=== PATIENT | female | born 2000 | race Caucasian/White ===

== ENCOUNTER → 2021-01-08 | Outpatient (CLI) | payer OTHER ==
[~2021-01-08] MED LIST: PROHANCE 279.3MG/ML 15ML VIAL As Ordered ONE
--- NOTE | 2021-01-08 13:09 | REP ---
INDICATION: RT BREAST LUMP W/ SOLID MASS NOTED. COMPARISON: Right breast ultrasound 11/21/2020 and 12/25/2020, mammogram right breast 12/25/2020. TECHNIQUE: Three Pamela MRI imaging was performed with a dedicated breast coil. Axial, coronal, and sagittal T1 and T2 weighted scans were obtained with and without fat saturation in the usual fashion. The study includes dynamically acquired post gadolinium-enhanced imaging with image subtraction. Maximum intensity projection and multi planar reformation imaging is included as well. This study is interpreted with the aid of ZextitD, an FDA approved computer aided detection (CAD) software program, on a dedicated breast MRI workstation. The gadolinium enhancement dose is 15 mL of intravenous ProHance. FINDINGS: There is moderate fibroglandular tissue bilaterally. No significant cystic change is seen in either breast. There is mild background parenchymal enhancement. There is no evidence of axillary adenopathy bilaterally. In the outer aspect of the right breast, approximately 8 cm from the nipple, there is a lobulated nodule. It is heterogeneous and mildly hyperintense on T2 weighted images. It measures approximately 1.4 x 1.0 cm. There is diffuse enhancement of the nodule, predominantly type 2 and type 3 enhancement. No other enhancing nodule or morphologic abnormality is seen in either breast. IMPRESSION: BI-RADS category 4, suspicious MRI. In the outer right breast approximately 8 cm from the nipple there is a 1.4 cm lobulated nodule which demonstrates type 2 and type 3 enhancement. This appears to correspond to the nodule identified by ultrasound 11/21/2020. Recommend ultrasound-guided biopsy. <Electronically signed by Jose Alejandro Matamoros > 01/08/21 [id number]
== END ==
LOC: M RAD 10:27
PROVIDERS: ATTEND Nurse Practitioner Primary Care
DX: N63.11 Unspecified lump in the right breast, upper outer quadrant (principal)

== ENCOUNTER → 2021-01-15 | Outpatient (CLI) | payer OTHER ==
[~2021-01-15] MED LIST changes: +DIAZ5TAB PO; -PROHANCE 279.3MG/ML 15ML VIAL As Ordered ONE
[2021-01-15 16:08] VITALS: BP 126/82
--- NOTE | 2021-01-15 22:49 | ROOPDOC ---
[facility] Report Of Operation Report of Operation DATE OF PROCEDURE: 01/15/21 DIAGNOSIS: right breast suspicious lesion PROCEDURE: ultrasound guided biopsy of the right breast suspicious lesions at 12:00 and 10:00 with clip placement, attempted ultrasound guided aspiration of the right breast 12:00 lesion SURGEON: Karoline Clay BLOOD LOSS: minimal COMPLICATIONS: none Lidocaine 1% LOT [id number] Expiration 07/2024 Sodium Bicarbonate 8.4% LOT [id number] Expiration 07/2021 BIOPSY OF RIGHT BREAST 12:00 LESION Hydromark clip LOT [id number] Expiration 09/2023 SHAPE: 3 Bx device: BARD [id number] x10 cm LOT [id number] Expiration 09/2023 BIOPSY OF RIGHT BREAST 10:00 LESION Hydromark clip LOT [id number] Expiration 09/2023 SHAPE: 4 Bx device: BARD [id number] x10 cm LOT [id number] Expiration 09/2023 Informed consent was obtained. The most common risk and possible complications including bleeding, hematoma, bruising, infection, injury to surrounding structures were explained to the patient and the patient expressed understanding. Patient was placed on the bed in the supine position. Appropriate time out was done stating patients name, date of , and the procedure to be performed. Patient confirmed location of the right breast mass at 10:00 7 CFN. This was marked on the skin. The right breast was prepped and draped in the usual fashion. The ultrasound was used to confirm the location of the lesions in the right breast at 10:00 7CFN and at 12:00 3CFN. Procedure was started with evaluation of 12:00 lesion. Plain Lidocaine 1% and 8.4% sodium bicarbonate 10:1 mix was used to anesthetize the skin, the biopsy site and tissues along the anticipated biopsy tract. An attempt was done to aspirate the 12:00 lesion with the 18 G needle. No fluid was returned and the lesion persisted. Decision was made to proceed with the biopsy of 12:00 lesion. Small skin incision was made with blade number 11. BARD Marquee 14G cannula with introducer ([id number]) was inserted through the incision and advanced under the ultrasound guidance to position immediately adjacent to the lesion. Next, the introducer was removed and BARD Marquee 14G biopsy device was places in the cannula. Pre-biopsy imaging, and post-biopsy imaging were captured. Five good core biopsies were taken at various levels of the lesion. Specimen was placed in formaldehyde, labeled with appropriate biopsy site and patients name, and sent to pathology for evaluation. Next, the biopsy device was withdrawn and a clip introducer was inserted into the biopsy site via the cannula. SHAPE 3 Hydromark clip was deployed under sonographic guidance. Post-clip placement image was captured. Manual pressure over the biopsy cavity and tract was held after the clip introducer was withdrawn. No bleeding was noted upon removal of the pressure. Next, we proceeded with the biopsy of the 10:00 lesion. Plain Lidocaine 1% and 8.4% sodium bicarbonate 10:1 mix was used to anesthetize the skin, the biopsy site and tissues along the anticipated biopsy tract. Small skin incision was made with blade number 11. BARD Marquee 14G cannula with introducer ([id number]) was inserted through the incision and advanced under the ultrasound guidance to position immediately adjacent to the lesion. Next, the introducer was removed and BARD Marquee 14G biopsy device was places in the cannula. Pre-biopsy imaging, and post-biopsy imaging were captured. Five good core biopsies were taken at various levels of the lesion. Specimen was placed in formaldehyde, labeled with appropriate biopsy site and patients name, and sent to pathology for evaluation. Next, the biopsy device was withdrawn and a clip introducer was inserted into the biopsy site via the cannula. SHAPE 4 Hydromark clip was deployed under sonographic guidance. Post-clip placement image was captured. Manual pressure over the biopsy cavity and tract was held after the clip introducer was withdrawn. No bleeding was noted upon removal of the pressure. Post-biopsy mammogram of the right breast was obtained and showed clip in expe cted position. Postprocedural dressing was placed. Patient tolerated procedure well. Discharge instructions were discussed with the patient and the patient expressed understanding. KAROLINE CLAY DO Jan 15, 2021 22:49
== END ==
LOC: M WHCPRO 09:29
PROVIDERS: ATTEND Surgery
DX: N60.21 Fibroadenosis of right breast (principal)

== ENCOUNTER 2021-02-11 06:00 | Day surgery (SDC) | payer OTHER ==
[~2021-02-11] VITALS: Ht 160 cm; Wt 78.4 kg
[~2021-02-11 06:00] MED LIST changes: +EMLA CREAM 5GM TUBE (LIDOCAINE/PRILOCAINE) TOP SCH; +HEPARIN SOD (PORCINE) 5000UNITS/ML 1ML VIAL/SYRINGE SQ SCH; +LR 1,000 ML IV SCH; +NAPR-885 PO; +ceFAZolin SOD 2 GM in IV 1 EA IV SCH
[2021-02-11] MEDS ORDERED: MIDAZOLAM INJ 2MG/2ML VIAL (J2250 PER 1MG) As Ordered ONE (06:59)
[2021-02-11] MEDS ORDERED: fentaNYL 100 MCG/2 ML INJECTION (J3010) As Ordered ONE ×2 (07:01→08:52)
[2021-02-11] MEDS ORDERED: propofoL 200 MG/20 ML VIAL As Ordered ONE ×2 (07:02→07:03)
[2021-02-11] MEDS ORDERED: LIDOCAINE 2% 100MG/5ML SDV (FOR ANES.) As Ordered ONE (07:04)
[2021-02-11] MEDS ORDERED: dexameTHASONE 4 MG/ML 1ML VIAL (J1100 PER 1MG) As Ordered ONE (07:05)
[2021-02-11] MEDS ORDERED: ACETAMINOPHEN 1000MG 100ML IV BTL (OFIRMEV) (J0131 PER 10MG) As Ordered ONE (07:55)
[2021-02-11] MEDS: BUPIVACAINE HCL 0.25% 30ML VIAL As Ordered ONE ×2 (07:55→08:15)
[2021-02-11] MEDS: LIDOCAINE 1% SDV 30ML VIAL As Ordered ONE ×2 (07:55→08:15)
[2021-02-11] MEDS ORDERED: ePHEDrine SULFATE 25 MG/5 ML(5MG/ML) SYRINGE As Ordered ONE (08:19)
[2021-02-11] MEDS ORDERED: ONDANSETRON 4MG/2ML VIAL As Ordered ONE (08:20)
[2021-02-11] MEDS ORDERED: METOCLOPRAMIDE INJ 10MG/2ML VIAL (J2765 PER 1) As Ordered ONE (08:29)
[2021-02-11] MEDS ORDERED: ULTR50TA8 PO (10:09)
[2021-02-11] MEDS ORDERED: fentaNYL 100 MCG/2 ML INJECTION (J3010) IV PRN (10:35)
[2021-02-11] MEDS ORDERED: oxyCODONE 5MG TAB PO PRN (10:35)
[2021-02-11] MEDS ORDERED: ONDANSETRON 4MG/2ML VIAL IV PRN (10:35)
[2021-02-11] MEDS ORDERED: LR 1,000 ML IV SCH (10:35)
[2021-02-11 11:29] VITALS: BP 125/77
--- NOTE | 2021-02-15 15:49 | ROOPDOC ---
[facility] Report Of Operation Report of Operation DATE OF PROCEDURE: 02/11/21 PREPROCEDURE DIAGNOSES: Right breast masses x2 POSTPROCEDURE DIAGNOSES: same PROCEDURE PERFORMED: Right breast excisional biopsy x2 of two breast masses, specimen radiography x2 SURGEON: Dr Karoline Macias ANESTHESIA: general ESTIMATED BLOOD LOSS: Approximately 15 mL. COMPLICATIONS: none FINDINGS: both clips identified, both specimens evaluated with intraop radiography PROCEDURE NOTE: INDICATIONS: Ms. Jimenez is a 20-year-old woman who was found to have a tender, palpable, right breast mass. During diagnostic evaluation she was found to have additional right breast mass seen on mammogram and US. 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 Patient wished for both lesions to be excised due to pain. Patient was medically cleared for surgery by the primary care doctor. Risks and possible complications of surgical procedure including bleeding, infection and injury to surrounding structures were explained to the patient and she wished to proceed. Consent was signed. My initials were placed on the operative site. Subcutaneous injection of 5000 units of heparin was done in Preop. DETAILS: Patient was taken to the operating room and placed on the operating room table. A sign in was called stating patients name, date of and the procedure to be done. Preoperative antibiotics were infused. Smooth induction of general anesthesia was done. Patients hands were extended on arm rests. Care was taken not to over extend the arms. Pillow was placed under the knees and a foam was placed under the heels. Sequential compression devices were placed and assured to function correctly. Patients right breast and axilla were prepped and draped in the usual fashion. Appropriate time out was done. Patients name, date of , and the procedure to be done were confirmed. Intraop Ultrasound was used to confirm location of the palpable mass at 10:00 and sonographically visible mass at 12:00. Hydromark clips were also noted inside the masses using intraop sonography. Next, local anesthetic using 1% lidocaine and 0.25 % Marcaine 50/50 mix was injected at the site of planned right periareolar incision. The incision was made with the scalpel. Subcutaneous skin flaps were raised. Initial dissection was carried toward the 12:00 lesion. Intraop US was again used to guide the dissection. The capsule surrounding the 12:00 mass was noted. Blunt dissection was done at this point to free the palpable mass from the surrounding attachments. Anchoring stitch was also placed to allow manipulation of the mass and to continue separation of the deeper aspects of the mass from the surrounding tissues. During dissection the marking stitch was identified and removed from the surgical site to avoid misplacement. Single stitch was placed at the site of the previous clip. The excisional biopsy specimen was carefully removed from the breast keeping its proper orientation and moved to the back table where margins were marked with the surgical inking kit following the standard colors recommendations. Specimen measured 2.8 x 2.3 x 1.9 cm. Specimen was then placed on the grid and placed in [employer] [facility]. The image revealed lobulated mass. Hydromark clip found during dissection was placed adjacent to the specimen and was confirmed on imaging. The specimen was labeled with patients name and right 12:00 excisional biopsy and sent to pathology. Next, our attention was turned toward the 10:00 mass. The dissection was carried toward the palpable mass at 10:00. Intraop US was again used to guide the dissection. Palpable mass capsule was noted. Blunt dissection was done at this point to free the palpable mass from the surrounding attachments. Anchoring stitch was also placed to allow manipulation of the mass and to continue separation of the deeper aspects of the mass from the surrounding tissues. The excisional biopsy specimen was carefully removed from the breast keeping its proper orientation and moved to the back table where margins were marked with the surgical inking kit following the standard colors recommendations. Specimen measured 3.3 x 2.9 x 2.7 cm. Specimen was then placed on the grid and placed in [employer] [facility]. The image revealed lobulated mass with hydromark clip in the specimen. The specimen was labeled with patients name and right 10:00 excisional biopsy and sent to pathology. Next, the entire wound was irrigated thoroughly and adequate hemostasis was assured. Additional local anesthetic was injected into surrounding tissues. spaces at both separate excisional biopsy sites were approximated with 2-0 Vicryl. The dermis was closed with 3-0 Vicryl and skin was closed with 4-0 Monocryl. Surgical glue was placed over the incision. Patient emerged from the anesthesia without any problems. Fluffs were placed o celina the operative site and patients chest was wrapped snuggly in the AUDREY wrap. Sponge and instrument counts were done and were correct. Patient tolerated procedure well and was taken to recovery unit in stable condition. DOMBROWSKA,KAROLINE K. DO Feb 15, 2021 15:49
== END 2021-02-11 11:35 | disposition home or self-care (01) ==
LOC: M SDC 06:00
PROVIDERS: ATTEND Surgery
DX: D24.1 Benign neoplasm of right breast (principal); N64.4 Mastodynia; E07.9 Disorder of thyroid, unspecified
CPT/HCPCS: 19120; 36415; 81025; 86850; 86900; 86901; 88305; J0131; J0690; J1100; J1644; J2250; J2405; J2765; J3010

== ENCOUNTER 2021-08-27 06:03 | Day surgery (SDC) | payer OTHER ==
[~2021-08-27] VITALS: Ht 160 cm; Wt 76.7 kg
[~2021-08-27 06:03] MED LIST changes: +ACETAMINOPHEN 650 MG SUPP PR ONE; -EMLA CREAM 5GM TUBE (LIDOCAINE/PRILOCAINE) TOP SCH; -HEPARIN SOD (PORCINE) 5000UNITS/ML 1ML VIAL/SYRINGE SQ SCH; +LIDOCAINE 1% MDV 20ML VIAL SQ PRN; +LR 1,000 ML IV ONE; -LR 1,000 ML IV SCH; +NAPR500T6 PO; +ULTR50TA8 PO; -ceFAZolin SOD 2 GM in IV 1 EA IV SCH
[2021-08-27 06:50] LABS: HEMATOCRIT 41.7 % (36.0-47.0); HEMOGLOBIN 14.1 g/dl (12.0-15.5)
[2021-08-27 07:11] LABS: HCG, SERUM QUALITATIVE NEGATIVE (NEGATIVE)
[2021-08-27] MEDS ORDERED: BUPIVACAINE HCL 0.25% 30ML VIAL As Ordered ONE (07:13)
[2021-08-27] MEDS ORDERED: LEVONORGESTREL 52MG (MIRENA) IUD As Ordered ONE (07:13)
[2021-08-27] MEDS ORDERED: ACETAMINOPHEN 650 MG SUPP As Ordered ONE (07:35)
[2021-08-27] MEDS ORDERED: fentaNYL 100 MCG/2 ML INJECTION As Ordered ONE ×3 (08:00→08:52)
[2021-08-27] MEDS ORDERED: ONDANSETRON 4MG/2ML VIAL As Ordered ONE (08:00)
[2021-08-27] MEDS ORDERED: dexameTHASONE 4 MG/ML 1ML VIAL (J1100 PER 1MG) As Ordered ONE (08:00)
[2021-08-27] MEDS ORDERED: SUGAMMADEX SODIUM 500 MG/5 ML VIAL (BRIDION) As Ordered ONE (08:00)
[2021-08-27] MEDS ORDERED: KETOROLAC 60MG 2ML VIAL As Ordered ONE (08:00)
[2021-08-27] MEDS ORDERED: MIDAZOLAM INJ 2MG/2ML VIAL (J2250 PER 1MG) As Ordered ONE (08:00)
[2021-08-27] MEDS ORDERED: propofoL 200 MG/20 ML VIAL As Ordered ONE (08:00)
[2021-08-27] MEDS ORDERED: ROCURONIUM BROMIDE 50 MG/5 ML VIAL As Ordered ONE (08:00)
[2021-08-27] MEDS ORDERED: LIDOCAINE 2% 100MG/5ML SDV (FOR ANES.) As Ordered ONE (08:00)
[2021-08-27] MEDS ORDERED: LR 1,000 ML IV SCH (08:55)
[2021-08-27] MEDS ORDERED: ONDANSETRON 4MG/2ML VIAL IV PRN (08:55)
[2021-08-27] MEDS: oxyCODONE 5MG TAB PO PRN ×2 (08:56→09:28)
[2021-08-27] MEDS: fentaNYL 100 MCG/2 ML INJECTION IV PRN ×2 (08:56→09:01)
[2021-08-27 09:35] VITALS: BP 125/82
== END 2021-08-27 10:33 | disposition home or self-care (01) ==
LOC: M SDC 06:03
PROVIDERS: ATTEND Obstetrics & Gynecology
DX: N80.0 Endometriosis of uterus (principal); Z30.430 Encounter for insertion of intrauterine contraceptive device; R10.9 Unspecified abdominal pain; M54.9 Dorsalgia, unspecified; N92.0 Excessive and frequent menstruation with regular cycle; Z79.1 Long term (current) use of non-steroidal anti-inflammatories (NSAID)
CPT/HCPCS: 36415; 49320; 58300; 84703; 85014; 85018; 86850; 86900; 86901; J1100; J1885; J2250; J2405; J3010; J7298

== ENCOUNTER → 2024-06-28 | Outpatient (REF) | payer OTHER ==
[~2024-06-28] MED LIST changes: -ACETAMINOPHEN 650 MG SUPP PR ONE; -LIDOCAINE 1% MDV 20ML VIAL SQ PRN; -LR 1,000 ML IV ONE; +NAPR-1405 PO; -NAPR500T6 PO
[2024-06-29 13:23] LABS: Trichomonas vaginalis (AMP) NOT DETECTED (NEGATIVE)
[2024-06-29 13:47] LABS: GC DNA AMPLIFICATION NEGATIVE (NEGATIVE)
== END ==
LOC: M LAB REF 11:55
PROVIDERS: ATTEND Nurse Practitioner Family
DX: R30.0 Dysuria (principal); Z11.3 Encounter for screening for infections with a predominantly sexual mode of transmission

== ENCOUNTER → 2025-04-06 | Outpatient (CLI) | payer OTHER ==
[~2025-04-06] MED LIST changes: +D3-5CAP PO; +PHEN37.511 PO; +PROHANCE 279.3MG/ML 5ML VIAL ONE
== END ==
LOC: M PLAIMG 14:11
PROVIDERS: ATTEND Internal Medicine
DX: R89.1 Abnormal level of hormones in specimens from other organs, systems and tissues (principal)
CPT/HCPCS: 70553; A9576